=== PATIENT | male | born 1945 | race Caucasian/White ===

== ENCOUNTER 2017-04-16 13:31 | Inpatient (IN) ==
[2017-04-16] MEDS ORDERED: 0.9 % Sodium Chloride 500 ML IVC ONE (14:42)
[2017-04-16] MEDS ORDERED: Ondansetron 4 MG/2 ML VIAL IVP PRN (15:04)
[2017-04-16] MEDS ORDERED: Naloxone 0.4 MG/ML INJ IVP PRN (15:04)
[2017-04-16] MEDS ORDERED: Acetaminophen 325 MG TABLET PO PRN (15:04)
[2017-04-16 15:07] VITALS: BP 79/38
[2017-04-16 15:08] LABS: ABG Base Excess 12.3 mEq/L (-2.0 to 3.0); ABG HCO3 38 mEq/L (21-27); ABG Oxygen Saturation 88 % (95-98); ABG PCO2 55 mmHg (35-45); ABG PH 7.45 pH Units (7.32-7.45); ABG PO2 52 mmHg (85-104); ABG TCO2 39.9 mEq/L (20-26)
[2017-04-16 15:09] LABS: Blood Gas FiO2 50 %
[2017-04-16] MEDS ORDERED: 0.9 % Sodium Chloride 1,000 ML IVC SCH (15:15)
--- NOTE | 2017-04-16 15:34 | Internal Med History&Physical ---
Date of Encounter: 04/16/17 Time of Encounter: 15:33 Assessment and Plan (1) SHANIQUA (acute kidney injury) Status: Acute Unclear etiology but noted to be having gradual worsening in serum creatinine over the last several days, as seen on outpatient labs; could be related to diuresis; continue IV hydration for now and monitor serum creatinine closely; will consult Nephrology; (2) Pneumonia Status: Acute Patient presented with respiratory failure and leukocytosis with bandemia; f/up blood cultures, send sputum culture if possible and start IV Vancomycin and Zosyn; supportive care; Pulmonology consult; Qualifiers: Pneumonia type: due to unspecified organism Laterality: bilateral Lung location: lower lobe of lung Qualified Code(s): J18.9 - Pneumonia, unspecified organism (3) Acute and chronic respiratory failure Status: Acute could be related to acute CHF/cardiogenic pulmonary edema, underlying Pneumonia , to r/o ARDS. Will consult Pulmonology for vent management. Check stat ABG and lactic acid levels. Continue cautious IV Lasix (due to SHANIQUA) and broad spectrum IV antibiotics- Vancomycin and Zosyn. F/up blood cultures. Telemetry monitoring. urine output monitoring. Check 2D Echocardiogram. Qualifiers: Respiratory failure complication: hypoxia Qualified Code(s): J96.21 - Acute and chronic respiratory failure with hypoxia (4) Acute exacerbation of CHF (congestive heart failure) Status: Acute Patient had a similar presentation in 2016, thought to be due to mucus plugging and underlying CHRIS/OHS; Echocardiogram was a technically difficult study, EF may have been mildly reduced; continue the above plan; monitor renal function carefully; Telemetry monitoring and cycle Troponins; hold beta ramos due to underlying bradycardia; Qualifiers: Congestive heart failure type: unspecified congestive heart failure type Qualified Code(s): I50.9 - Heart failure, unspecified (5) Cardiopulmonary arrest Status: Acute (6) DM2 (diabetes mellitus, type 2) Status: Chronic Accucheck blood glucose monitoring with basal bolus insulin regimen as needed; Qualifiers: Diabetes mellitus complication status: with circulatory complication Diabetes mellitus complication detail: with other circulatory complications Diabetes mellitus manager intermediate insulin use: with manager intermediate use Qualified Code(s) : E11.59 - Type 2 diabetes mellitus with other circulatory complications; Z79.4 - intermodal owner operator truck driver (current) use of insulin (7) Hypothermia Status: Acute patient i noted to have hypothermia, hypotension, bradycardia- unclear etiology - ?sepsis, to r/o SD; will consult Pulmonology; continue supportive care with [employer]ger, IV hydration; check TSH, random cortisol levels; Qualifiers: Encounter type: initial encounter Qualified Code(s): T68.XXXA - Hypothermia , initial encounter (8) Hypothyroidism Status: Chronic Qualifiers: Hypothyroidism type: unspecified Qualified Code(s): E03.9 - Hypothyroidism , unspecified (9) Morbid obesity with BMI of 45.0-49.9, adult Status: Chronic (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 Vera is a 72 year old male with h/o- chronic respiratory failure on tracheostomy and vent-dependent at nights, was sent from [facility] with acute on chronic respiratory failure. Patient is unable to provide any history at the time of my evaluation, noted to be nonverbal with intermittent myoclonic jerks. Limited History obtained from his daughter at beside. Patient has been residing at a manager intermediate care facility for the last 15years as he received tracheostomy due to inability to extubate due to underlying CHRIS/OHS. He is wheelchair bound but otherwise active and participates in facility acitivities. However for the last few weeks, his functional status has been gradually declining, he has been less communicative and less active. He also had a PCP visit recently with these complaints and his Lasix dose may have been adjusted. Patient only reported c/o- shortness of breath in the [place] [facility] and could provide no further history. He was noted to be hypoxic and improved after aggressive airway suctioning. He is suspected to have likely acute CHF or Pneumonia and was transferred to our hospital for further management. Past Med Surg Social Fam HX - Past Medical History Medical history: asthma, atrial fibrillation, CHF, COPD, coronary artery disease , DVT, diabetes, GERD, GI bleed, hyperlipidemia, hypertension, thyroid disease, TIA, other Psychiatric history: anxiety, depression - Past Surgical History Surgical History: other, tracheostomy - Social History Smoking Status: Never smoker Smokeless Tobacco Status: No Alcohol use: none Drug use: none Occupational status: disabled Current living situation: ECF Activity Level: Wheelchair bound Recent Out of Country Travel Within the Last 8 Weeks: No Exposure or Possible Exposure to Illness During Travel: No - Family History Father Adopted: No Family Member Ethnicity: Non- Living Status: Hx Family Cardiac Disorders: Yes Hx Family Respiratory Disorders: No Hx Family Cancer: No Hx Family GI Disorders: No Hx Family Endocrine Disorder: No Hx Family Neuromuscular Disorders: No Hx Family Neurologic Disorders: No Hx Family HEENT Disorders: No Hx Family Autoimmune Disorders: No Mother Adopted: No Family Member Ethnicity: Non- Living Status: Hx Family Cardiac Disorders: No Hx Family Respiratory Disorders: No Hx Family Cancer: No Hx Family GI Disorders: No Hx Family Endocrine Disorder: No Hx Family Neuromuscular Disorders: No Hx Family Neurologic Disorders: No Hx Family HEENT Disorders: No Hx Family Autoimmune Disorders: No Internal Medicine - H&P: Meds Clopidogrel [Plavix] 75 mg PO DAILY 05/20/15 [History] Insulin ASPART [NovoLOG] 8 - 10 unit SQ TID 05/20/15 [History] Ipratropium/Albuterol Neb [Duoneb] 3 ml IH Q6HR 05/20/15 [History] Levothyroxine [Synthroid] 75 mcg PO QAM 05/20/15 [History] Metoprolol [Lopressor] 12.5 mg PO BID 05/20/15 [History] Multivitamin [Multi-Day Vitamins] 1 each PO DAILY 05/20/15 [History] Acetaminophen [Tylenol] 650 mg PO Q4HR PRN 09/20/15 [History] Calcium Carbonate/Vitamin D2 [Oyster Shell Calcium-Vit D Tab] 2 each PO DAILY [History] Magnesium Oxide [Magnesium] 400 mg PO BID 09/20/15 [History] Bisacodyl [Dulcolax] 10 mg RC DAILY PRN 10/23/15 [History] Docusate [Colace] 100 mg PO BID 10/23/15 [History] Fluticasone Propionate Nasal [Flonase] 100 mcg NS DAILY PRN 10/23/15 [History] Nitroglycerin [Nitrostat] 0.4 mg SL Q5M PRN 10/23/15 [History] Pantoprazole Sodium [Protonix] 40 mg PO DAILY 10/23/15 [History] Potassium Chloride [K-Tab ER] 20 meq PO HS 10/23/15 [History] Albuterol Neb [Proventil Neb] 2.5 mg IH Q4H PRN 04/16/17 [History] Amoxicillin [Amoxil] 500 mg PO TID 04/16/17 [History] Atorvastatin [Lipitor] 10 mg PO HS 04/16/17 [History] Budesonide Neb [Pulmicort Neb] 0.5 mg IH BID 04/16/17 [History] Dextrose 25% in Water (Syg) [Dextrose] 10 ml IV ONCE PRN 04/16/17 [History] Dextrose Gel [Gluctose] 15 gm PO ONCE PRN 04/16/17 [History] Docusate [Colace] 100 mg PO DAILY PRN 04/16/17 [History] Ferrous Sulfate [Iron] 325 mg PO BID 04/16/17 [History] Fluocinonide 1 appl TP DAILY 04/16/17 [History] Furosemide [Lasix] 120 mg PO DAILY 04/16/17 [History] Glucagon,Human Recombinant [Glucagen] 1 mg IJ ONCE PRN 04/16/17 [History] Guaifenesin [Mucinex] 1,200 mg PO BID 04/16/17 [History] Insulin ASPART [Novolog Flexpen] 2 - 12 unit SQ ACHS 04/16/17 [History] Loratadine [Claritin] 10 mg PO QPM 04/16/17 [History] Phenol [Chloraseptic] 2 spray MM Q2H PRN 04/16/17 [History] Polyethylene Glycol 3350 [MiraLAX] 17 gm PO DAILY PRN 04/16/17 [History] Ranitidine HCl [Zantac 75] 150 mg PO DAILY 04/16/17 [History] Sacubitril/Valsartan [Entresto 24 mg-26 mg Tablet] 1 each PO BID 04/16/17 [ History] metOLazone [Zaroxolyn] 2.5 mg PO MOWEFR 04/16/17 [History] predniSONE [PredniSONE] 5 mg PO DAILY 04/16/17 [History] 3 Allergy/AdvReac Type Severity Reaction Status Date / Time phenytoin Allergy Rash Verified 05/20/15 08:50 Exenatide Allergy Severe Rash Uncoded 08/16/15 08:55 ROS unobtainable: due to mental status All Systems PM: A 10-system review of systems was performed and is negative for pertinent findings except as documented above in the HPI. - Constitutional Constitutional: lethargy, weakness, no chills, no fever(s), no night sweats - EENT Eyes: no change in vision, no discharge, no pain, no photophobia Ears: no ear discharge, no ear pain, no tinnitus Nose, mouth and throat: no dysphagia, no nasal discharge, no neck pain, no sore throat - Cardiovascular Cardiovascular ROS IM: dyspnea, dyspnea on exertion - Constitutional Vitals: Temp Pulse Resp BP Pulse Ox 90.1 F L 56 16 79/38 92 04/16/17 13:41 04/16/17 13:41 04/16/17 15:05 04/16/17 15:05 04/16/17 15:05 General appearance: Present: obese, severe distress. Absent: A&O X 0, answers questions appropriately Exam: nonverbal, right-sided myoclonic jerks - Neck Neck exam general surgery: Present: supple, trachea midline. Absent: lymphadenopathy Additional comments: tracheostomy noted - Respiratory Respiratory exam: Present: CTAB (coarse breath sounds B/L anterolaterally). Absent: accessory muscle use, rales, rhonchi, wheezes - Cardiovascular Cardiovascular exam: Present: bradycardia, RRR, +S1, +S2. Absent: diastolic murmur, gallop, rubs, systolic murmur - GI/Abdominal GI/Abdominal exam: Present: normal bowel sounds, soft (obese), no peritoneal signs. Absent: distended, tenderness - Extremities Exam Extremities exam: Present: warm, radial pulses palpable and symmetrical. Absent : calf tenderness, cyanotic, pedal edema - Neurological Exam Neurological exam: Present: altered, no focal deficits (chronic B/L LE weakness ; further exam cannot be completed due to mental status). Absent: pronater drift, facial droop, speech deficit - Skin Skin exam: Present: dry, intact Internal Med - H&P Results - ABG Interpretation ABG results: 04/16/17 14:56 ABG pH 7.45 ABG pCO2 55 H ABG pO2 52 L ABG HCO3 38 H ABG Total CO2 39.9 H ABG O2 Saturation 88 L ABG Base Excess 12.3 H - EKG Data -: EKG Interpreted by Myself EKG shows normal: sinus rhythm (LBBB) Rate: bradycardia - Diagnostic Studies Chest x-ray Status: image reviewed by me Additional comments: cardiomegaly; B/L parenchymal opacities concerning for pulmonary edema or underlying infiltrates/Pneumonia;
[2017-04-16] MEDS ORDERED: *HR* LORazepam 2 MG/ML VIAL ONE (15:44)
[2017-04-16] MEDS ORDERED: Vancomycin 2,000 MG in D5% in Water 250 ML IVPB SCH (16:00)
[2017-04-16] MEDS ORDERED: *HR* Morphine 2 MG/ML SYRINGE ONE (16:20)
--- NOTE | 2017-04-16 16:32 | Pulmonology Consult Note ---
<Torres Guzman - Last Filed: 04/16/17 16:30> Date of Encounter: 04/16/17 Time of Encounter: 15:39 Assessment and Plan (1) Cardiopulmonary arrest Current Visit: Yes Status: Acute Acute cardiopulmonary arrest secondary to cardiogenic stroke versus septic shock versus pulmonary embolism versus ME. Patient passed way despite resuscitation efforts. Patient was bradycardic and hypotensive prior to going into ventricular tachycardia. Patient was in the process of being transferred to the intensive care unit and Cardiology was consulted. (2) Acute anoxic encephalopathy Current Visit: Yes Status: Acute (3) Acute and chronic respiratory failure Current Visit: No Status: Acute ABG revealed a pH 7.4 vital, PCO2 55, PO2 52, HC03 38, and O2 sat 88. Patient on ventilator. Qualifiers: Qualified Code(s): J96.21 - Acute and chronic respiratory failure with hypoxia; J96.22 - Acute and chronic respiratory failure with hypercapnia (4) Hypoxia Current Visit: No Status: Acute (5) Tracheostomy dependence Current Visit: No Status: Acute (6) Hypothermia Current Visit: Yes Status: Acute Temperature 90.1 F, ceci hugger applied Qualifiers: Encounter type: sequela Qualified Code(s): T68.XXXS - Hypothermia, sequela (7) CHF (congestive heart failure) Current Visit: No Status: Acute Last echocardiogram October 2016 revealed technically challenging study due to body habitus and clinical status. LV systolic function appears mildly reduced. Qualifiers: Congestive heart failure type: unspecified congestive heart failure type Congestive heart failure chronicity: acute on chronic Qualified Code(s): I50.9 - Heart failure, unspecified (8) Physical deconditioning Current Visit: No Status: Acute Patient is wheelchair bound, has tracheostomy, and lives in a nursing over the past 15 years. Patient is on ventilator every night. (9) DM2 (diabetes mellitus, type 2) Current Visit: No Status: Acute Qualifiers: Diabetes mellitus complication status: with circulatory complication Diabetes mellitus complication detail: with other circulatory complications Qualified Code(s): E11.59 - Type 2 diabetes mellitus with other circulatory complications; Z79.4 - jail (current) use of insulin (10) Morbid obesity with BMI of 45.0-49.9, adult Current Visit: No Status: Acute (11) DVT prophylaxis Current Visit: Yes Status: Acute Heparin History of Present Illness Consult date: 04/16/17 Requesting physician: Johanne Jamison Reason for consult: hypoxemia Chief complaint: weakness History of present illness: Mr. Huang is a 72-year-old [facility]bound [facility] the past [facility] years male with a past medical history of hypertension, CHF, coronary artery disease, diabetes, ME, and chronic tracheostomy that presented with progressive weakness for the past week, change in mentation, poor PO intake, and not taking his meds at the [facility] according to his daughter at bedside. Daughter reports patient has poor baseline function and is put on the ventilator at night. Of note, patient was put on Augmentin 1 week ago at the [facility] secondary to upper respiratory infection secondary to increased upper respiratory secretions. Patient was initially seen at [facility] and transferred here to the ICU stepdown unit. Critical care was consulted secondary to bradycardia and hypotension 1 hour after patient arrived per EMS to the ICU stepdown unit. At this point he was put on the ventilator secondary to hypoxia. ABG revealed a pH 7.4 vital, PCO2 55, PO2 52, HC03 38, and O2 sat 88. Patient was awake but unable to respond to questions. Vital signs were revealed hypothermia with temperature 90.1 Fahrenheit and Ceci hugger was in place. Labs revealed White blood count was 14.4 with neutrophil predominance, sodium 146, potassium 5.4, chloride 96, CO2 36, BUN 100, creatinine 2.25, and glucose 201. Lactate was 2.2 troponin 0.1, and magnesium level 2.0. EGK revealed sinus bradycardia. During initial patient counter patient was lying in bed, unable to questions, appeared ill, and bradycardic with heart rate 49 blood pressure 78/56. He was receiving 500 mL IV fluid bolus and orders were placed to transfer patient to the ICU. Cardiology was consulted secondary to bradycardia and hypotension. Shortly afterwards, nursing reported patient started to have seizure activity and heart rate went into ventricular tachycardia. Patient did not have a pulse CODE BLUE was called and chest compressions were initiated. Please see CODE BLUE note for additional details. Case was discussed with the daughter during and after code. Past Med Surg Social Fam HX - Past Medical History Medical history: asthma, atrial fibrillation, CHF, COPD, DVT, diabetes, GERD, GI bleed, hyperlipidemia, hypertension, thyroid disease, TIA, other Psychiatric history: anxiety, depression - Past Surgical History Surgical History: other, tracheostomy - Social History Smoking Status: Never smoker Smokeless Tobacco Status: No Alcohol use: none Drug use: none - Family History Father Adopted: No Family Member Ethnicity: Non- Living Status: Hx Family Cardiac Disorders: Yes Hx Family Respiratory Disorders: No Hx Family Cancer: No Hx Family GI Disorders: No Hx Family Endocrine Disorder: No Hx Family Neuromuscular Disorders: No Hx Family Neurologic Disorders: No Hx Family HEENT Disorders: No Hx Family Autoimmune Disorders: No Mother Adopted: No Family Member Ethnicity: Non- Living Status: Hx Family Cardiac Disorders: No Hx Family Respiratory Disorders: No Hx Family Cancer: No Hx Family GI Disorders: No Hx Family Endocrine Disorder: No Hx Family Neuromuscular Disorders: No Hx Family Neurologic Disorders: No Hx Family HEENT Disorders: No Hx Family Autoimmune Disorders: No Medications and Allergies Clopidogrel [Plavix] 75 mg PO DAILY 05/20/15 [History] Insulin ASPART [NovoLOG] 8 - 10 unit SQ TID 05/20/15 [History] Ipratropium/Albuterol Neb [Duoneb] 3 ml IH Q6HR 05/20/15 [History] Levothyroxine [Synthroid] 75 mcg PO QAM 05/20/15 [History] Metoprolol [Lopressor] 12.5 mg PO BID 05/20/15 [History] Multivitamin [Multi-Day Vitamins] 1 each PO DAILY 05/20/15 [History] Acetaminophen [Tylenol] 650 mg PO Q4HR PRN 09/20/15 [History] Calcium Carbonate/Vitamin D2 [Oyster Shell Calcium-Vit D Tab] 2 each PO DAILY [History] Magnesium Oxide [Magnesium] 400 mg PO BID 09/20/15 [History] Bisacodyl [Dulcolax] 10 mg RC DAILY PRN 10/23/15 [History] Docusate [Colace] 100 mg PO BID 10/23/15 [History] Fluticasone Propionate Nasal [Flonase] 100 mcg NS DAILY PRN 10/23/15 [History] Nitroglycerin [Nitrostat] 0.4 mg SL Q5M PRN 10/23/15 [History] Pantoprazole Sodium [Protonix] 40 mg PO DAILY 10/23/15 [History] Potassium Chloride [K-Tab ER] 20 meq PO HS 10/23/15 [History] Albuterol Neb [Proventil Neb] 2.5 mg IH Q4H PRN 04/16/17 [History] Amoxicillin [Amoxil] 500 mg PO TID 04/16/17 [History] Atorvastatin [Lipitor] 10 mg PO HS 04/16/17 [History] Budesonide Neb [Pulmicort Neb] 0.5 mg IH BID 04/16/17 [History] Dextrose 25% in Water (Syg) [Dextrose] 10 ml IV ONCE PRN 04/16/17 [History] Dextrose Gel [Gluctose] 15 gm PO ONCE PRN 04/16/17 [History] Docusate [Colace] 100 mg PO DAILY PRN 04/16/17 [History] Ferrous Sulfate [Iron] 325 mg PO BID 04/16/17 [History] Fluocinonide 1 appl TP DAILY 04/16/17 [History] Furosemide [Lasix] 120 mg PO DAILY 04/16/17 [History] Glucagon,Human Recombinant [Glucagen] 1 mg IJ ONCE PRN 04/16/17 [History] Guaifenesin [Mucinex] 1,200 mg PO BID 04/16/17 [History] Insulin ASPART [Novolog Flexpen] 2 - 12 unit SQ ACHS 04/16/17 [History] Loratadine [Claritin] 10 mg PO QPM 04/16/17 [History] Phenol [Chloraseptic] 2 spray MM Q2H PRN 04/16/17 [History] Polyethylene Glycol 3350 [MiraLAX] 17 gm PO DAILY PRN 04/16/17 [History] Ranitidine HCl [Zantac 75] 150 mg PO DAILY 04/16/17 [History] Sacubitril/Valsartan [Entresto 24 mg-26 mg Tablet] 1 each PO BID 04/16/17 [ History] metOLazone [Zaroxolyn] 2.5 mg PO MOWEFR 04/16/17 [History] predniSONE [PredniSONE] 5 mg PO DAILY 04/16/17 [History] 3 Allergy/AdvReac Type Severity Reaction Status Date / Time phenytoin Allergy Rash Verified 05/20/15 08:50 Exenatide Allergy Severe Rash Uncoded 08/16/15 08:55 ROS unobtainable: due to endotracheal tube All Systems: A 10-system review of systems was performed and is negative for pertinent findings except as documented above in the HPI. Physical Examination Vital Signs: Vital Signs, Last 4 Hours Temp Pulse Resp BP Pulse Ox 04/16/17 15:05 16 79/38 92 04/16/17 13:41 90.1 F L 56 14 108/82 89 General appearance: lethargic, appears uncomfortable, other (Morbidly obese, on ventilator, appears ill, pale, Ceci hugger) Eyes: nonicteric ENT: oropharynx dry, other (A calcium placed) Neck: supple, no lymphadenopathy Effort: mildly labored, other (On ventilator. Tracheostomy) Inspection: other (Symmetrical expansion) Auscultation: bilateral: diminished breath sounds Cardiovascular: other (Sinus bradycardia) Gastrointestinal: normoactive bowel sounds, soft, non-tender, other (No guarding ) Integumentary: other (Warm dry, no rash) Extremities: cool, edema pupils equal and round, unable to assess due to mental status, other (Altered mental status) other (Unable to evaluate) Ventilator Settings Ventilator Settings: Ventilator Settings, Last 8 Hours Ventilator Mode A/C Ventilator Mode A/C Ventilator Tidal Volume 600 Setting Ventilator Tidal Volume 600 Setting Ventilator Respiratory Rate 14 Setting Ventilator Respiratory Rate 14 Setting Actual Respiratory Rate 16 Positive End Expiratory 5 Pressure Positive End Expiratory 5 Pressure Peak Inspiratory Airway 33 Pressure Results - Laboratory Findings ABG ABG pH 7.45 pH Units (7.32-7.45) 04/16/17 14:56 ABG pCO2 55 mmHg (35-45) H 04/16/17 14:56 ABG pO2 52 mmHg (85-104) L 04/16/17 14:56 ABG O2 Saturation 88 % (95-98) L 04/16/17 14:56 Abnormal lab findings: Abnormal lab results ABG pCO2 55 mmHg (35-45) H 04/16/17 14:56 ABG pO2 52 mmHg (85-104) L 04/16/17 14:56 ABG HCO3 38 mEq/L (21-27) H 04/16/17 14:56 ABG Total CO2 39.9 mEq/L (20-26) H 04/16/17 14:56 ABG O2 Saturation 88 % (95-98) L 04/16/17 14:56 ABG Base Excess 12.3 mEq/L (-2.0 to 3.0) H 04/16/17 14:56 - Diagnostic Findings Chest x-ray: report reviewed, image reviewed - Clinical Findings Intake & Output: Intake & Output 04/16/17 04/16/17 04/16/17 07:59 15:59 23:59 Weight 165.731 kg Consult Discharge Plan - Plan Referrals: NONE,PCP [Primary Care Provider] - <Marilynn Shah - Last Filed: 04/16/17 19:50> Date of Encounter: 04/16/17 All Systems: A 10-system review of systems was performed and is negative for pertinent findings except as documented above in the HPI. Physical Examination Vital Signs: Vital Signs, Last 4 Hours Pulse Ox Pulse Ox 04/16/17 18:33 65 59 Ventilator Settings Ventilator Settings: Ventilator Settings, Last 8 Hours Ventilator Mode A/C Ventilator Mode A/C Ventilator Tidal Volume 600 Setting Ventilator Tidal Volume 600 Setting Ventilator Respiratory Rate 14 Setting Ventilator Respiratory Rate 14 Setting Actual Respiratory Rate 16 Positive End Expiratory 5 Pressure Positive End Expiratory 5 Pressure Peak Inspiratory Airway 33 Pressure Results - Laboratory Findings ABG ABG pH 7.45 pH Units (7.32-7.45) 04/16/17 14:56 ABG pCO2 55 mmHg (35-45) H 04/16/17 14:56 ABG pO2 52 mmHg (85-104) L 04/16/17 14:56 ABG O2 Saturation 88 % (95-98) L 04/16/17 14:56 Abnormal lab findings: Abnormal lab results ABG pCO2 55 mmHg (35-45) H 04/16/17 14:56 ABG pO2 52 mmHg (85-104) L 04/16/17 14:56 ABG HCO3 38 mEq/L (21-27) H 04/16/17 14:56 ABG Total CO2 39.9 mEq/L (20-26) H 04/16/17 14:56 ABG O2 Saturation 88 % (95-98) L 04/16/17 14:56 ABG Base Excess 12.3 mEq/L (-2.0 to 3.0) H 04/16/17 14:56 - Clinical Findings Intake & Output: Intake & Output 04/16/17 04/16/17 04/16/17 07:59 15:59 23:59 Weight 165.731 kg - Attending Attestation I saw the patient with the resident agree with History and Physical exam findings. Patient was consulted by after the patient arrived from [facility] as per report patient was stable expect for some hypoxic respiratory failure patient has chronic tracheostomy , at baseline he moves around in the wheel chair can speak with horacio parkerir for the past 1 week in the [facility] he stopped communicating , not taking his PO medications not eating , because he had increased secretions from tracheostomy treated as tracheitis, progressively declined not responding brought to the ER ira griffin found to be in hypoxic respiratory failure connected to ventilator , on route he was not on any ventilator when he was received in 2A bed 9 patient was bradycardic and hypotensive . Pulmononology was consulted at that point . Labs were reviwed Ventilator data were reviewed DIETETICS TEACHER: Patient was not responding at all had some myoclonic jerks not following commands , he was on venatilator at that point asked daughter at bedside this is his mental status for past 1 week and he is slowly deteriorating . NECK : No JVD appreciated becuase of body habitus Pulmonary : Patient is on hypoxic and hypercarbic respiratory failure with ABG showed hypoxemia and with compensated respiratory acidosis . Patient was ventilated with FIO2 70% with Tidal volume of 600 ml RR 14 and Peep and he was saturating at 94% Cardiac : Blood pressure was borderline , NIBP measurement was erratic one reading 78/60 other readings were above 140 it was decided patient will be shifted to ICU will get a intra arterial line and Central venous access , but his bradycardia with hypotension concerning for rhythm problem or any acute ME going on potassium was 5.5 on the labs . Cardiology was consulted Bed was obtained in the ICU before the patient was shifted to ICU gricel kahn was called by the primary team , Code team arrived found he started seizing the rhythm was monomorphic V tachycardia please refer to Code notes . Patient saturation was in the 60s in the code , he regained pulse briefly could not measure his blood pressure . Went spoke with daughter mutiple times regarding his poor neurological recovery after this cardiac arrest , Daughter said father wanted to have some quality of life as such relating to people , as going back to baseline is very bleak , keep going with cycles of CPR doesnt improve his neurological recovery it was decided by the code team , critical care attending applications coordinator , cardiology attending applications coordinator , hospitalist on service if he lose pulse after this round of CPR he will be made comfortable and no agressive measures will be pursued. Patient lost ROSC again he was made comfortable and passed peacefully .Daughter was updated and comforted .
--- NOTE | 2017-04-16 17:13 | Event Note ---
Date of Encounter: 04/16/17 Time of Encounter: 16:43 CODE BLUE note: I responded to an overhead paged for rapid response to 2N9, upon arrival I found Mr. Vera laying in his hospital bed receiving oral suction from respiratory therapy, the patient's eyes were deviated up into the left, his face was blue and he was poorly responsive. CODE STATUS was identified as full code. His oxygen saturations were 70% upon arrival to the room, he was bradycardic and hypotensive. Within a few seconds of entering the room the patient's bradycardia transitioned into ventricular fibrillation and CPR was initiated and a CODE BLUE was called at 1545, 1 mg of epinephrine was provided, and pulse check his rhythm was PEA and CPR was continued. Another pulse check was performed at 1548 and the patient was still in PEA and another dose of epinephrine was provided followed by re-initiation of CPR. H&T's were discussed , latest blood gas was reviewed. At the next pulse check 1550 he was found to be in V. tach and a 200 J shock was provided followed by reinitiation of CPR. 300 mg amiodarone was provided at 1552, a dose of epinephrine was provided at 1553 with pulse check demonstrating PEA and CPR was resumed. 1 amp bicarbonate was given at 1555, a pulse was identified with pulse check at 1556 followed by 2 g IV magnesium provided. Patient's blood pressure was still hypotensive and a 500 mL bolus 0.9 NaCl was provided. The patient's pulse faded and he was found to be in PEA and CPR was resumed. At 1601 he was provided 1 g calcium chloride followed by a pulse check at 1602 that demonstrated a weak but palpable femoral pulse. A manual blood pressure was obtained demonstrating a systolic blood pressure in the 70s and oxygen saturation 65% 100% oxygen through his trach. Patient was placed on appendectomy drip at 5mcg/in and 2 minutes later his pulse faded and CPR was re-initiated. At 1608 he was given another epi and placed on an amiodarone drip and femoral pulse was palpable at 1609.All attendings present including Dr. Bernal- Hospitalist, Dr. Dean- Cardiology, Dr. Shah- Pulmonary Critical care were present during the code and as the patient did not have adequate response to ACLS for more than 20 minutes without ROSC the code was called off. Dr. Shah dicussed with the patients daughter and addressed the futility of care, given poor overall outcomes, and the patient was made comfortable as his pulse continued to diminish his supportive medications were discontinued. Patient was kept comfortable with 2mg morphine as his respirations became more agonal. The patient failed to respond He remained hypotensive and hypoxic throughout the entire code with oxygen saturations never exceeding 71%. Patient became more bradycardic and at 1624. Time of : 1624
[2017-04-16] MEDS ORDERED: *HR* Heparin 5,000 UNIT/ML VIAL SQ SCH (18:00)
[2017-04-17] MEDS ORDERED: Pantoprazole 40 MG VIAL IVP SCH (09:00)
== END 2017-04-16 19:03 | disposition expired | DRG 871 ==
LOC: 2NNU
PROVIDERS: ADMIT Internal Medicine; ATTEND Internal Medicine